=== PATIENT | male | born 1950 | race Caucasian/White ===

== ENCOUNTER → 2017-09-22 | Outpatient (CLI) | payer BC | LOC: COL.RAD 08:44 | DX: H53.413 Scotoma involving central area, bilateral (principal); F44.89 Other dissociative and conversion disorders ==

== ENCOUNTER → 2021-08-28 | Outpatient (CLI) | payer BC, MEDICARE | LOC: COL.RAD 09:51 | DX: M47.816 Spondylosis without myelopathy or radiculopathy, lumbar region (principal); M51.26 Other intervertebral disc displacement, lumbar region; M48.061 Spinal stenosis, lumbar region without neurogenic claudication; M71.38 Other bursal cyst, other site ==